=== PATIENT | female | born 1995 | race African-American/Black ===

== ENCOUNTER 2017-06-14 06:06 | Emergency (ER) | payer OTHER ==
[~2017-06-14] VITALS: Ht 170.2 cm; Wt 64.5 kg
[~2017-06-14 06:06] MED LIST: PREN1TAB89 PO
[2017-06-14 06:08] VITALS: BP 148/93
== END 2017-06-14 07:14 | disposition home or self-care (01) ==
LOC: EMS 06:07
DX: M79.641 Pain in right hand (principal); M79.642 Pain in left hand
CPT/HCPCS: 99284